=== PATIENT | male | born 1970 | race Caucasian/White ===

== ENCOUNTER 2018-04-20 13:58 | Outpatient (REF) | payer MEDICAID, SELFPAY ==
[2018-04-23 07:28] LABS: Vitamin D 25 Total 32.1 ng/ml (30-100)
== END 2018-04-20 13:59 ==
LOC: NCHCN 13:58
PROVIDERS: PCP Registered Nurse; Visit Provider Registered Nurse
DX: S22.41XS Multiple fractures of ribs, right side, sequela (principal); Z13.820 Encounter for screening for osteoporosis
CPT/HCPCS: 82306

== ENCOUNTER 2018-08-22 21:33 | Outpatient (REF) | payer MEDICAID, SELFPAY ==
[2018-08-22 22:11] LABS: Abs Immature Grans 0.07 k/cumm (0.0-0.09); Absolute Basophil Count 0.13 k/cumm (0.0-0.2); Absolute Eosinophil Count 0.35 k/cumm (0.0-0.7); Absolute Lymphocyte Count 2.42 k/cumm (1.2-3.4); Absolute Monocyte Count 0.64 k/cumm (0.11-0.7); Absolute Neutrophil Count 4.67 k/cumm (1.2-6.7); Basophils % 1.6; Eosinophils % 4.2; HCT 45.6 % (40.0-50.0); HGB 16.1 g/dL (13.5-17.5); Immature Grans % 0.8; Lymphocytes % 29.2; Mean Corp. HGB Concentration 35.3 g/dL (32.0-36.0); Mean Corpuscular Hemoglobin 31.9 pg (27.0-33.0); Mean Corpuscular Volume 90.5 fL (80-95); Mean Platelet Volume 10.7 fL (8.0-11.0); Monocytes % 7.7; Neutrophils % 56.5; Platelet Count 241 x1000/uL (130-400); RBC 5.04 m/cumm (4.50-6.00); RBC Distribution Width 14.7 % (11.8-14.1); White Blood Cell Count 8.28 k/cumm (4.4-10.8)
[2018-08-22 22:18] LABS: ALT 273 U/L (12-78); AST 124 U/L (15-37); Albumin 3.6 g/dL (3.4-5.0); Alkaline Phosphatase 60 U/L (46-116); Anion Gap 9.6 mmol/L (3-11); BUN 18 mg/dL (7-18); Bilirubin, Total 0.4 mg/dL (0.2-1.0); CO2 29.4 mmol/L (21.0-32.0); CREATININE 1.12 mg/dL (0.70-1.30); Calcium 9.3 mg/dL (8.5-10.1); Chloride 104 mmol/L (98-107); Glucose 98 mg/dL (70-100); Potassium 4.2 mmol/L (3.5-5.1); Sodium 143 mmol/L (136-145); Total Protein 7.1 g/dL (6.4-8.2)
[2018-08-24 12:53] LABS: HCV RNA Detection Quantitative Undetected IU/mL (UNDECT)
== END 2018-08-22 21:53 ==
LOC: LBN 21:33
PROVIDERS: PCP Registered Nurse; Visit Provider Internal Medicine Gastroenterology
DX: B18.2 Chronic viral hepatitis C (principal)
CPT/HCPCS: 80053; 85025; 87522

== ENCOUNTER 2018-10-04 17:58 | Outpatient (REF) | payer MEDICAID, SELFPAY ==
[2018-10-04 21:04] LABS: Anion Gap 6.2 mmol/L (3-11); BUN 19 mg/dL (7-18); CO2 32.8 mmol/L (21.0-32.0); CREATININE 1.08 mg/dL (0.70-1.30); Calcium 9.5 mg/dL (8.5-10.1); Chloride 107 mmol/L (98-107); Glucose 123 mg/dL (70-100); Potassium 3.7 mmol/L (3.5-5.1); Sodium 146 mmol/L (136-145)
== END 2018-10-04 18:18 ==
LOC: NCHCN 17:58
PROVIDERS: PCP Registered Nurse; Visit Provider Registered Nurse
DX: I48.91 Unspecified atrial fibrillation (principal)
CPT/HCPCS: 80048

== ENCOUNTER 2018-10-12 08:41 | Outpatient (REF) | payer MEDICAID, SELFPAY ==
[2018-10-12 20:56] LABS: BUN 19 mg/dL (7-18); Calcium 8.8 mg/dL (8.5-10.1); Chloride 105 mmol/L (98-107); Glucose 119 mg/dL (70-100); Potassium 4.3 mmol/L (3.5-5.1); Sodium 144 mmol/L (136-145)
== END 2018-10-12 09:01 ==
LOC: NCHCN 08:41
PROVIDERS: PCP Registered Nurse; Visit Provider Registered Nurse
DX: I50.9 Heart failure, unspecified (principal)
CPT/HCPCS: 80048

== ENCOUNTER 2019-01-09 11:37 | Outpatient (REF) | payer MEDICAID, SELFPAY ==
[2019-01-09 22:03] LABS: Abs Immature Grans 0.04 k/cumm (0.0-0.09); Absolute Basophil Count 0.06 k/cumm (0.0-0.2); Absolute Eosinophil Count 0.35 k/cumm (0.0-0.7); Absolute Lymphocyte Count 2.16 k/cumm (1.2-3.4); Absolute Monocyte Count 0.52 k/cumm (0.11-0.7); Absolute Neutrophil Count 5.13 k/cumm (1.2-6.7); Basophils % 0.7; Eosinophils % 4.2; HCT 47.3 % (40.0-50.0); Immature Grans % 0.5; Lymphocytes % 26.2; Mean Corp. HGB Concentration 33.8 g/dL (32.0-36.0); Mean Corpuscular Hemoglobin 31.6 pg (27.0-33.0); Mean Corpuscular Volume 93.5 fL (80-95); Mean Platelet Volume 10.7 fL (8.0-11.0); Monocytes % 6.3; Neutrophils % 62.1; Platelet Count 252 x1000/uL (130-400); RBC 5.06 m/cumm (4.50-6.00); RBC Distribution Width 14.8 % (11.8-14.1); White Blood Cell Count 8.26 k/cumm (4.4-10.8)
[2019-01-09 22:53] LABS: ALT 87 U/L (12-78); AST 43 U/L (15-37); Albumin 3.6 g/dL (3.4-5.0); Alkaline Phosphatase 57 U/L (46-116); Anion Gap 8.4 mmol/L (3-11); BUN 18 mg/dL (7-18); Bilirubin, Total 0.3 mg/dL (0.2-1.0); CO2 27.6 mmol/L (21.0-32.0); CREATININE 1.25 mg/dL (0.70-1.30); Chloride 105 mmol/L (98-107); Glucose 188 mg/dL (70-100); Potassium 3.9 mmol/L (3.5-5.1); Sodium 141 mmol/L (136-145); Total Protein 6.8 g/dL (6.4-8.2)
[2019-01-11 14:38] LABS: HCV RNA Detection Quantitative Undetected IU/mL (UNDECT)
== END 2019-01-09 11:57 ==
LOC: LBN 11:37
PROVIDERS: PCP Registered Nurse; Visit Provider Internal Medicine Cardiovascular Disease
DX: I42.8 Other cardiomyopathies (principal); B18.2 Chronic viral hepatitis C
CPT/HCPCS: 80053; 85025; 87522

== ENCOUNTER 2019-12-26 13:59 | Outpatient (REF) | payer MEDICAID, SELFPAY ==
[2019-12-26 20:30] LABS: HCT 49.7 % (40.0-50.0); HGB 17.8 g/dL (13.5-17.5); Mean Corp. HGB Concentration 35.8 g/dL (32.0-36.0); Mean Corpuscular Hemoglobin 32.4 pg (27.0-33.0); Mean Corpuscular Volume 90.5 fL (80-95); Mean Platelet Volume 10.7 fL (8.0-11.0); Platelet Count 297 x1000/uL (130-400); RBC 5.49 m/cumm (4.50-6.00)
[2019-12-26 20:54] LABS: ALT 168 U/L (16-63); AST 58 U/L (15-37); Albumin 3.9 g/dL (3.4-5.0); Alkaline Phosphatase 56 U/L (46-116); Anion Gap 11.5 mmol/L (3-11); BUN 34 mg/dL (7-18); Bilirubin, Total 0.8 mg/dL (0.2-1.0); CO2 26.5 mmol/L (21.0-32.0); CREATININE 1.49 mg/dL (0.70-1.30); Calcium 8.9 mg/dL (8.5-10.1); Chloride 101 mmol/L (98-107); Estimated GFR 49.92 (mL/min/1.73m2); Glucose 120 mg/dL (74-106); NT-proBNP 183 pg/mL (<300); Potassium 3.3 mmol/L (3.5-5.1); Sodium 139 mmol/L (136-145); Total Protein 7.2 g/dL (6.4-8.2)
== END 2019-12-26 14:19 ==
LOC: NCHCN 13:59
PROVIDERS: PCP Registered Nurse; Visit Provider Registered Nurse
DX: I50.9 Heart failure, unspecified (principal); R06.02 Shortness of breath
CPT/HCPCS: 80053; 85027; 83880

== ENCOUNTER 2020-01-03 15:21 | Outpatient (REF) | payer MEDICAID, SELFPAY ==
[2020-01-03 21:07] LABS: BUN 28 mg/dL (7-18); CREATININE 1.67 mg/dL (0.70-1.30); Calcium 9.2 mg/dL (8.5-10.1); Chloride 102 mmol/L (98-107); Estimated GFR 43.77 (mL/min/1.73m2); Glucose 111 mg/dL (74-106); Potassium 4.3 mmol/L (3.5-5.1); Sodium 141 mmol/L (136-145)
[2020-01-03 21:31] LABS: Hemoglobin A1C 5.6 % (3.8-5.6)
== END 2020-01-03 15:41 ==
LOC: NCHCN 15:21
PROVIDERS: PCP Registered Nurse; Visit Provider Registered Nurse
DX: R73.03 Prediabetes (principal); I10 Essential (primary) hypertension
CPT/HCPCS: 80048; 83036

== ENCOUNTER 2020-03-05 16:59 | Outpatient (REF) | payer MEDICAID, SELFPAY ==
[2020-03-05 20:52] LABS: BUN 23 mg/dL (7-18); CREATININE 1.42 mg/dL (0.70-1.30); Calcium 9.3 mg/dL (8.5-10.1); Chloride 102 mmol/L (98-107); Estimated GFR 52.77 (mL/min/1.73m2); Glucose 150 mg/dL (74-106); Potassium 4.2 mmol/L (3.5-5.1); Sodium 139 mmol/L (136-145)
== END 2020-03-05 17:19 ==
LOC: NCHCN 16:59
PROVIDERS: PCP Registered Nurse; Visit Provider Nurse Practitioner Family
DX: R73.03 Prediabetes (principal); I10 Essential (primary) hypertension; J44.9 Chronic obstructive pulmonary disease, unspecified
CPT/HCPCS: 80048

== ENCOUNTER 2020-03-18 20:01 | Outpatient (REF) | payer MEDICAID, SELFPAY ==
[2020-03-18 20:16] LABS: ALT 131 U/L (16-63); AST 62 U/L (15-37); Anion Gap 10.3 mmol/L (3-11); BUN 24 mg/dL (7-18); CO2 28.7 mmol/L (21.0-32.0); CREATININE 1.13 mg/dL (0.70-1.30); Calcium 9.1 mg/dL (8.5-10.1); Chloride 103 mmol/L (98-107); Glucose 97 mg/dL (74-106); NT-proBNP 723 pg/mL (<300); Potassium 3.5 mmol/L (3.5-5.1); Sodium 142 mmol/L (136-145)
== END 2020-03-18 20:21 ==
LOC: NCHCN 20:01
PROVIDERS: PCP Registered Nurse; Visit Provider Registered Nurse
DX: R60.0 Localized edema (principal); R06.02 Shortness of breath; I50.9 Heart failure, unspecified; E66.9 Obesity, unspecified; I10 Essential (primary) hypertension
CPT/HCPCS: 80048; 83880; 84443; 84450; 84460

== ENCOUNTER 2020-03-25 22:05 | Outpatient (REF) | payer MEDICAID, SELFPAY ==
[2020-03-25 21:15] LABS: Anion Gap 9.6 mmol/L (3-11); BUN 54 mg/dL (7-18); CO2 30.4 mmol/L (21.0-32.0); CREATININE 2.02 mg/dL (0.70-1.30); Calcium 9.2 mg/dL (8.5-10.1); Chloride 99 mmol/L (98-107); Estimated GFR 35.14 (mL/min/1.73m2); Glucose 132 mg/dL (74-106); NT-proBNP 360 pg/mL (<300); Sodium 139 mmol/L (136-145)
== END 2020-03-25 22:25 ==
LOC: NCHCN 22:05
PROVIDERS: PCP Registered Nurse; Visit Provider Registered Nurse
DX: I50.9 Heart failure, unspecified (principal); I48.91 Unspecified atrial fibrillation; R73.03 Prediabetes; R60.0 Localized edema
CPT/HCPCS: 80048; 83880

== ENCOUNTER 2020-04-02 16:43 | Outpatient (REF) | payer MEDICAID, SELFPAY ==
[2020-04-02 21:06] LABS: Anion Gap 9.5 mmol/L (3-11); BUN 18 mg/dL (7-18); CO2 26.5 mmol/L (21.0-32.0); CREATININE 1.28 mg/dL (0.70-1.30); Calcium 9.2 mg/dL (8.5-10.1); Chloride 100 mmol/L (98-107); Estimated GFR 59.49 (mL/min/1.73m2); Glucose 127 mg/dL (74-106); NT-proBNP 844 pg/mL (<300); Potassium 4.1 mmol/L (3.5-5.1); Sodium 136 mmol/L (136-145)
== END 2020-04-02 17:03 ==
LOC: NCHCN 16:43
PROVIDERS: PCP Registered Nurse; Visit Provider Registered Nurse
DX: R06.02 Shortness of breath (principal); R60.0 Localized edema
CPT/HCPCS: 80048; 83880

== ENCOUNTER 2020-04-16 15:49 | Outpatient (REF) | payer MEDICAID, SELFPAY ==
[2020-04-16 21:22] LABS: BUN 26 mg/dL (7-18); CREATININE 1.63 mg/dL (0.70-1.30); Calcium 9.6 mg/dL (8.5-10.1); Chloride 104 mmol/L (98-107); Estimated GFR 45.01 (mL/min/1.73m2); Glucose 85 mg/dL (74-106); Potassium 4.7 mmol/L (3.5-5.1); Sodium 142 mmol/L (136-145)
[2020-04-16 21:41] LABS: NT-proBNP 1085 pg/mL (<300)
== END 2020-04-16 16:09 ==
LOC: NCHCN 15:49
PROVIDERS: PCP Registered Nurse; Visit Provider Registered Nurse
DX: I50.9 Heart failure, unspecified (principal); I48.91 Unspecified atrial fibrillation; R74.8 Abnormal levels of other serum enzymes
CPT/HCPCS: 80048; 83880

== ENCOUNTER 2020-06-01 11:25 | Outpatient (REF) | payer MEDICAID, SELFPAY ==
[2020-06-04 16:58] LABS: Patient Race White; SARS-CoV-2 RNA Undetected (Undetected); SARS-CoV-2 Specimen Source Nasopharynx
== END 2020-06-01 11:45 ==
LOC: NCHCN 11:25
PROVIDERS: PCP Registered Nurse; Visit Provider Registered Nurse
DX: Z20.828 Contact with and (suspected) exposure to other viral communicable diseases (principal)
CPT/HCPCS: U0003

== ENCOUNTER 2020-06-05 17:13 | Outpatient (REF) | payer MEDICAID, SELFPAY ==
[2020-06-05 21:01] LABS: Abs Immature Grans 0.03 10^3/uL (0.0-0.06); Absolute Eosinophil Count 0.31 10^3/uL (0.0-0.7); Absolute Lymphocyte Count 4.35 10^3/uL (1.2-3.4); Absolute Monocyte Count 0.95 10^3/uL (0.1-0.8); Absolute Neutrophil Count 4.38 10^3/uL (1.2-6.7); Eosinophils % 3.1; HCT 48.2 % (40.0-50.0); HGB 16.1 g/dL (13.5-17.5); Immature Grans % 0.3; MCH 32.9 pg (27.0-33.0); MCHC 33.4 % (32.0-36.0); MCV 98.4 fL (80-95); MPV 10.7 fL (8.0-11.0); Monocytes % 9.4; Neutrophils % 43.2; Nucleated RBC 0 %; Platelet Count 238 10^3/uL (130-400); RDW 14.6 % (11.8-14.1); RDW-SD 53.2 fL; WBC 10.12 10^3/uL (4.4-10.8)
[2020-06-05 21:14] LABS: Anion Gap 7.5 mmol/L (3-11); BUN 20 mg/dL (7-18); CO2 29.5 mmol/L (21.0-32.0); CREATININE 1.16 mg/dL (0.70-1.30); Calcium 9.3 mg/dL (8.5-10.1); Chloride 106 mmol/L (98-107); Glucose 90 mg/dL (74-106); Potassium 4.3 mmol/L (3.5-5.1); Sodium 143 mmol/L (136-145)
== END 2020-06-05 17:33 ==
LOC: NCHCN 17:13
PROVIDERS: PCP Registered Nurse; Visit Provider Family Medicine
DX: I10 Essential (primary) hypertension (principal); I48.91 Unspecified atrial fibrillation; E66.9 Obesity, unspecified; Z86.79 Personal history of other diseases of the circulatory system
CPT/HCPCS: 80048; 85025

== ENCOUNTER 2020-10-09 13:46 | Outpatient (REF) | payer MEDICAID, SELFPAY ==
[2020-10-09 21:07] LABS: HCT 50.9 % (40.0-50.0); HGB 17.1 g/dL (13.5-17.5); MCH 31.2 pg (27.0-33.0); MCHC 33.6 % (32.0-36.0); MCV 92.9 fL (80-95); MPV 10.5 fL (8.0-11.0); Platelet Count 311 10^3/uL (130-400); RBC 5.48 10^6/uL (4.36-5.78); RDW 14.6 % (11.8-14.1); RDW-SD 49.8 fL
[2020-10-09 21:35] LABS: ALT 264 U/L (16-63); AST 139 U/L (15-37); Albumin 3.8 g/dL (3.4-5.0); Alkaline Phosphatase 54 U/L (46-116); Anion Gap 12.2 mmol/L (3-11); BUN 23 mg/dL (7-18); Bilirubin, Total 0.6 mg/dL (0.2-1.0); CO2 23.8 mmol/L (21.0-32.0); CREATININE 0.9 mg/dL (0.70-1.30); Calcium 9.6 mg/dL (8.5-10.1); Chloride 103 mmol/L (98-107); Glucose 136 mg/dL (74-106); NT-proBNP 351 pg/mL (<300); Potassium 5.1 mmol/L (3.5-5.1); Sodium 139 mmol/L (136-145); Total Protein 7.5 g/dL (6.4-8.2)
== END 2020-10-09 13:47 | disposition home or self-care (01) ==
LOC: NCHCN 13:46
PROVIDERS: PCP Registered Nurse; Visit Provider Registered Nurse
DX: R06.02 Shortness of breath (principal); J44.9 Chronic obstructive pulmonary disease, unspecified; I10 Essential (primary) hypertension
CPT/HCPCS: 80053; 85027; 83880